=== PATIENT | male | born 1980 | race Caucasian/White ===

== ENCOUNTER 2019-07-27 15:29 | Emergency (ER) | payer BC ==
[2019-07-27 15:42] VITALS: TEMP 97.7
[2019-07-27] MEDS ORDERED: ASPIRIN 81 MG PO STA (16:02)
[2019-07-27] MEDS ORDERED: NITROGLYCERIN OINT 1 INCH/GM PACKET TOPICAL STA (16:02)
[2019-07-27 16:52] LABS: Basophils % (A) 1 %; Eosinophils # (A) 0.3 k/uL (0-0.7); Eosinophils % (A) 3 %; HCT 48.5 % (39.0-53.0); Lymphocytes # (A) 2.1 k/uL (1.0-4.8); Lymphocytes % (A) 27 %; MCH 32.3 pg (25.0-35.0); MCHC 33.1 g/dL (31.0-37.0); MCV 97.6 fL (80.0-100.0); Monocytes # (A) 0.4 k/uL (0-1.0); Monocytes % (A) 5 %; Neutrophils % (A) 63 %; Platelet Count 180 k/uL (150-450); RBC 4.97 m/uL (4.30-5.90); RDW 12.4 % (11.5-15.5); WBC 7.8 k/uL (3.8-10.6)
[2019-07-27 17:00] LABS: ALT 40 U/L (4-49); AST 29 U/L (17-59); African American GFR (CKD) >90 (>60 ml/min/1.73 sqM); Albumin 4.8 g/dL (3.5-5.0); Alkaline Phosphatase 59 U/L (38-126); Anion Gap 7 mmol/L; Blood Urea Nitrogen 14 mg/dL (9-20); Calcium 9.9 mg/dL (8.4-10.2); Carbon Dioxide 29 mmol/L (22-30); Chloride 106 mmol/L (98-107); Glucose 101 mg/dL (74-99); Magnesium 2.2 mg/dL (1.6-2.3); Non-African American GFR(CKD) >90 (>60 ml/min/1.73 sqM); Potassium 4.6 mmol/L (3.5-5.1); Sodium 142 mmol/L (137-145); Total Bilirubin 0.5 mg/dL (0.2-1.3); Total Protein 7.6 g/dL (6.3-8.2)
[2019-07-27 17:06] LABS: INR 0.9 (<1.2); Partial Thromboplastin Time 23.6 sec (22.0-30.0); Prothrombin Time 9.6 sec (9.0-12.0)
--- NOTE | 2019-07-27 17:09 | XR ---
EXAMINATION TYPE: XR chest 2V DATE OF EXAM: 07/27/2019 COMPARISON: 01/14/2013 HISTORY: Cough TECHNIQUE: 2 views FINDINGS: Heart and mediastinum are normal. Lungs are clear of infiltrate. There is no pleural effusi on. There are no hilar masses. There is no heart failure. Bony thorax is intact. IMPRESSION: No active cardiopulmonary disease. No significant change.
[2019-07-27] MEDS ORDERED: LORazepam 2 MG/ML INJ IV STA (18:02)
--- NOTE | 2019-07-27 18:10 | ED ---
Chest Pain HPI - General Chief Complaint: Chest Pain Stated Complaint: Chest Pain Earlier Time Seen by Provider: 07/27/19 15:55 Source: patient Mode of arrival: ambulatory Limitations: no limitations - History of Present Illness Initial Comments: This 38-year-old white male presents with a complaint of some chest pain. He describes it as a pressure in the midsternal region. He states that he is getting some numbness up into his jaw and down his left arm. This occurred approximately 1 PM this afternoon. It was persistent throughout the day. He d enies any shortness of breath. There's been no leg pain or swelling or history of DVT or PE. There is no shortness of breath. He denies any anxiety problems. He denies any previously known cardiac disease. He does relate that his grandfather had a heart attack and before the age of 55. He's never had a cardiac workup previously. No other complaints or modifying factors. - Related Data Allergies Allergy/AdvReac Type Severity Reaction Status Date / Time azithromycin [From Zithromax] AdvReac Unknown Verified 07/27/19 15:41 Review of Systems ROS Statement: Those systems with pertinent positive or pertinent negative responses have been documented in the HPI. ROS Other: All systems not noted in ROS Statement are negative. Past Medical History Past Medical History: No Reported History History of Any Multi-Drug Resistant Organisms: None Reported Past Surgical History: No Surgical Hx Reported Past Psychological History: No Psychological Hx Reported Smoking Status: Current every day smoker Past Alcohol Use History: None Reported Past Drug Use History: None Reported General Exam - General Exam Comments Initial Comments: GENERAL: The patient is well nourished and well hydrated. VITAL SIGNS: Heart rate, blood pressure, respiratory rate reviewed as recorded in nurse's notes. EYES: Pupils are round and reactive. Extraocular movements are intact. No conjunctival / lid redness or swelling. ENT: No external evidence of injury, swelling, or ecchymosis. Airway is patent. Throat is clear. NECK: Nontender. No swelling or evidence of injury. No subcutaneous emphysema. Trachea is midline. No thyroid mass. HEART: Regular rate and rhythm. Good peripheral pulses. LUNGS/CHEST: Breath sounds clear and equal bilaterally. No rales, rhonchi, or wheezes. No ecchymosis, subcutaneous emphysema, or tenderness. ABDOMEN: Abdomen soft without tenderness. No palpable masses or organomegaly. No peritoneal signs. No abdominal wall swelling or ecchymosis. EXTREMITIES: No extremity tenderness. Normal muscle tone and function. No thoracolumbar tenderness. NEUROLOGIC: Sensation is grossly intact. Cranial nerve exam reveals face is symmetrical, tongue is midline, speech is clear. SKIN: No abrasions or ecchymosis is noted. No induration or masses noted. PSYCHIATRIC: Alert and oriented. Appropriate behavior and judgment. Limitations: no limitations Course Vital Signs 07/27/19 07/27/19 07/27/19 15:39 15:41 15:53 Temperature 97.7 F Pulse Rate 71 67 Pulse Rate [ 68 [employer] ] Respiratory 18 20 Rate Blood Pressure 167/101 O2 Sat by Pulse 98 97 Oximetry 07/27/19 07/27/19 07/27/19 16:00 16:30 17:00 Temperature Pulse Rate 69 62 71 Pulse Rate [ [employer] ] Respiratory 18 18 22 Rate Blood Pressure 141/90 128/87 127/79 O2 Sat by Pulse 98 96 Oximetry 07/27/19 20:13 Temperature Pulse Rate 79 Pulse Rate [ Electric [employer]r ] Respiratory 18 Rate Blood Pressure 109/82 O2 Sat by Pulse 100 Oximetry Chest Pain [facility] the patient was seen and examined. All diagnostics were reviewed. He did receive some aspirin as well as some Nitropaste. He is chest pain-free on recheck. The EKG shows a normal sinus rhythm at a rate of 68. There is no acute ST-T wave changes identified. The WA intervals 126, QRS duration is 110, and the QTC intervals 423. He is not having any further chest pain on recheck and is sleeping.he was offered admission to the hospital versus having a second troponin and discharge with close follow-up and outpatient stress test. He would prefer not to stay in the hospital. All laboratory was essentially within normal limits including 2 troponins. Is felt as though he is stable for discharge. Return parameters are discussed. He does understand that he should take an aspirin daily. He later relates that he has seen Dr. Kay 2 years ago for left sided chest pain and can follow-up with him again. Disposition Clinical Impression: Chest pain Disposition: HOME SELF-CARE Condition: Good Instructions (If sedation given, give patient instructions): Chest Pain (ED) Additional Instructions: please take one aspirin daily. Please follow-up with your doctor as soon as possible for a stress test. Is patient prescribed a controlled substance at d/c from ED?: No Referrals: None,Stated [Primary Care Provider] - 1-2 days Time of Disposition: 20:46
[2019-07-27 20:14] VITALS: BP 109/82; PULSE 79; RESP 18
== END 2019-07-27 21:00 | disposition home or self-care (01) ==
LOC: EC 15:29
DX: R07.9 Chest pain, unspecified (principal); R20.0 Anesthesia of skin; F17.200 Nicotine dependence, unspecified, uncomplicated; Z88.1 Allergy status to other antibiotic agents
CPT/HCPCS: 36415; 71046; 80053; 83735; 84484; 85025; 85610; 85730; 93005; 99285

== ENCOUNTER → 2021-11-23 | Outpatient (CLI) | payer BC ==
[2021-11-23 23:43] LABS: HCT 47.9 % (39.6-50.0); HGB 16.4 g/dL (13.0-17.0); MCH 32.8 pg (27.0-32.0); MCHC 34.2 g/dL (32.0-37.0); MCV 95.8 fL (80.0-97.0); Mean Platelet Volume 10.9 fL (9.5-12.2); NRBC Per 100 WBC 0 /100 WBCS (0.0-0.0); Platelet Count 225 X 10*3/uL (140-440); RDW 12.5 % (11.5-14.5); WBC 7.74 X 10*3/uL (4.50-10.00)
[2021-11-23 23:55] LABS: ALT 36 U/L (10-49); AST 22 U/L (14-35); African American GFR (CKD) 123.4 (60.0-200.0); BUN/Creat Ratio 7.22 Ratio (12.00-20.00); Blood Urea Nitrogen 6.5 mg/dL (9.0-27.0); Calcium 9.3 mg/dL (8.7-10.3); Carbon Dioxide 22.8 mmol/L (20.0-27.5); Chloride 102 mmol/L (96-109); Chol/HDL Ratio 5.75 Ratio; Glucose 84 mg/dL (70-110); LDL Cholesterol,Calculated 141.1 mg/dL (0.0-131.0); Non-African American GFR(CKD) 106.5 (60.0-200.0); Potassium 4.2 mmol/L (3.5-5.5); Sodium 139 mmol/L (135-145)
== END | disposition home or self-care (01) ==
LOC: LABWHC1 15:55
PROVIDERS: ATTEND Nurse Practitioner Family
DX: R00.2 Palpitations (principal)
CPT/HCPCS: 36415; 80048; 80061; 84443; 84450; 84460; 85027